=== PATIENT | female | born 1945 | race Caucasian/White ===

== ENCOUNTER 2017-04-09 11:42 | Emergency (ER) | payer OTHER ==
[~2017-04-09] VITALS: Ht 154.9 cm; Wt 78.0 kg
[~2017-04-09 11:42] MED LIST: VITA400C70; [UNRECOGNIZED DRUG - REMARK]
[2017-04-09 11:46] VITALS: BP 136/87; PULSE 114; RESP 12; TEMP 98.6; O2SAT 95
--- NOTE | 2017-04-09 11:52 | PD ---
Physical Exam Time Seen by Provider: 11:50 Narrative 71-year-old female presents to emergency room with complaint of left upper quadrant abdominal pain 6 days. MAXIMUM TEMPERATURE of 101.0. Reports vomiting. Denies diarrhea. Denies hematemesis. Denies chest pain or shortness of breath. Sent by her primary care provider. Patient seen in triage. Vital signs reviewed. Patient awaiting bed placement. Data Data Last Documented VS Vital Signs Date Time Temp Pulse Resp B/P (MAP) Pulse Ox O2 Delivery O2 Flow Rate FiO2 04/09/17 11:46 98.6 114 12 136/87 (103) 95 MDM Supervised Visit with JANN: Sofiya Garcia Apr 09, 2017 11:52
[2017-04-09 13:42] VITALS: BP 136/63; PULSE 92; RESP 18; O2SAT 97
[2017-04-09] MEDS ORDERED: HYDR-3801 PO (14:14)
[2017-04-09] MEDS ORDERED: SODIUM CHLORIDE 0.9% FLUSH 10 ML FLUSH IV FLUSH PRN (14:30)
--- NOTE | 2017-04-09 14:36 | PD ---
HPI Chief Complaint: Abdominal Pain Time Seen by Provider: 14:12 Travel History International Travel<30 days: No Contact w/Intl Traveler<30days: No Traveled to known affect area: No History of Present Illness HPI 71-year-old female presents to the emergency room for evaluation of midepigastric and left upper quadrant pain for the past 6 days. Patient states she has history of biliary colic which presents like this but pain has never lasted this long. States pain was most severe 3 days ago and has significantly improved but she was concerned at the persistence. She called her primary care physician who recommended she come to the emergency room for evaluation. She has never had any abdominal surgery except . She reports a few episodes of nausea with nonbloody, nonbilious vomiting a few days ago. She had diarrhea yesterday that was green in color. Patient denies fever, chills. No significant medical history except mild hypertension for which she takes hydralazine. She denies chest pain, shortness breath, or diaphoresis. She denies alcohol use. PFS Past Medical History Anxiety: Yes High Cholesterol: Yes ?: Not Past Surgical History Section: Yes Social History Alcohol Use: No Tobacco Use: No Substance Use: No Allergies-Medications (Allergen,Severity, Reaction): Coded Allergies: iodine (Unverified Allergy, Mild, Hives, 04/09/17) penicillin G (Unverified Allergy, Mild, Hives, 04/09/17) potassium iodide (Unverified Allergy, Mild, Hives, 04/09/17) povidone-iodine (Unverified Allergy, Mild, Hives, 04/09/17) sodium iodide (Unverified Allergy, Mild, Hives, 04/09/17) sodium iodide (Unverified Allergy, Mild, Hives, 04/09/17) iohexol (Unverified Allergy, Unknown, PT STATES INTERNAL ALLERGY TO IODINE , 04/09/17) Reported Meds & Prescriptions Reported Meds & Active Scripts Active Reported Hydralazine (Hydralazine HCl) 100 Mg Tab 50 Mg PO DAILY Take with meals Review of Systems Except as stated in HPI: all other systems reviewed are Neg Physical Exam Narrative GENERAL: Well-nourished, well-developed female in no acute distress. Afebrile. Ambulatory. SKIN: Focused skin assessment warm/dry. HEAD: Normocephalic. EYES: No scleral icterus. No injection or drainage. NECK: Supple, trachea midline. No JVD or lymphadenopathy. CARDIOVASCULAR: Regular rate and rhythm without murmurs, gallops, or rubs. RESPIRATORY: Breath sounds equal bilaterally. No accessory muscle use. GASTROINTESTINAL: Abdomen soft, nondistended. Mild tenderness to palpation of the left upper quadrant. No peritoneal signs. No rebound tenderness. Data Data Last Documented VS Vital Signs Date Time Temp Pulse Resp B/P (MAP) Pulse Ox O2 Delivery O2 Flow Rate FiO2 04/09/17 13:42 92 18 136/63 (87) 97 Room Air 04/09/17 11:46 98.6 Orders Orders Complete Blood Count With Diff (04/09/17 14:22) Comprehensive Metabolic Panel (04/09/17 14:22) Lipase (04/09/17 14:22) Prothrombin Time / Inr (Pt) (04/09/17 14:22) Act Partial Throm Time (Ptt) (04/09/17 14:22) Iv Access Insert/Monitor (04/09/17 14:22) Ecg Monitoring (04/09/17 14:22) Oximetry (04/09/17 14:22) Sodium Chloride 0.9% Flush (Ns Flush) (04/09/17 14:30) Electrocardiogram (04/09/17 14:22) Us Abdomen Gallbladder (04/09/17 14:32) Troponin I (04/09/17 14:36) Ckmb (Isoenzyme) Profile (04/09/17 14:36) Labs Laboratory Tests Test 04/09/17 15:50 White Blood Count 6.6 TH/MM3 Red Blood Count 5.14 MIL/MM3 Hemoglobin 14.7 GM/DL Hematocrit 44.1 % Mean Corpuscular Volume 85.8 FL Mean Corpuscular Hemoglobin 28.7 PG Mean Corpuscular Hemoglobin Concent 33.4 % Red Cell Distribution Width 14.2 % Platelet Count 308 TH/MM3 Mean Platelet Volume 7.7 FL Neutrophils (%) (Auto) 70.7 % Lymphocytes (%) (Auto) 14.0 % Monocytes (%) (Auto) 12.0 % Eosinophils (%) (Auto) 2.9 % Basophils (%) (Auto) 0.4 % Neutrophils # (Auto) 4.7 TH/MM3 Lymphocytes # (Auto) 0.9 TH/MM3 Monocytes # (Auto) 0.8 TH/MM3 Eosinophils # (Auto) 0.2 TH/MM3 Basophils # (Auto) 0.0 TH/MM3 CBC Comment DIFF FINAL Differential Comment Prothrombin Time 10.7 SEC Prothromb Time International Ratio 1.0 RATIO Activated Partial Thromboplast Time 28.3 SEC Blood Urea Nitrogen 13 MG/DL Creatinine 0.76 MG/DL Random Glucose 80 MG/DL Total Protein 7.9 GM/DL Albumin 3.4 GM/DL Calcium Level 9.4 MG/DL Alkaline Phosphatase 195 U/L Aspartate Amino Transf (AST/SGOT) 72 U/L Alanine Aminotransferase (ALT/SGPT) 242 U/L Total Bilirubin 0.9 MG/DL Sodium Level 137 MEQ/L Potassium Level 4.4 MEQ/L Chloride Level 105 MEQ/L Carbon Dioxide Level 22.9 MEQ/L Anion Gap 9 MEQ/L Estimat Glomerular Filtration Rate 75 ML/MIN Total Creatine Kinase 95 U/L Troponin I LESS THAN 0.02 NG/ML Lipase 419 U/L MDM Medical Decision Making Medical Screen Exam Complete: Yes Emergency Medical Condition: Yes Medical Record Reviewed: Yes Differential Diagnosis Abdominal pain, cholelithiasis, cholecystitis, GERD, pancreatitis Narrative Course 71-year-old female presents to the emergency room for evaluation of midepigastric and left upper quadrant abdominal pain with radiation to her back for the past 6 days. Patient states pain has been improving but she was concerned about the persistence. States she has had biliary colic in the past and this is how presented. Patient denies shortness of breath, diaphoresis, or history of heart disease. Abdomen is soft, mildly tender to palpation especially in the left upper quadrant. No peritoneal signs, guarding, or rebound tenderness. IV access established and basic labs obtained. EKG shows sinus rhythm with a rate of [address] changes. Troponin and CK-MB are unremarkable. CBC is unremarkable. Ultrasound of the gallbladder shows cholelithiasis without evidence of acute infection. CMP is still not resulted at 1745. CMP resulted at approximately 1800. It is significant for elevated liver enzymes and lipase of 419. History and physical exam are consistent with pancreatitis. She is able to tolerate fluids and has not vomited since Friday (3 days ago). Vital signs stable. Patient is stable for outpatient follow-up. She was put on a clear liquid diet and discharged with prescriptions for Zofran and Lortab. Told to follow up with her primary care physician for recheck this week or return for worsening symptoms. She understands and agrees to plan. Diagnosis Primary Impression: Pancreatitis Qualified Codes: K85.00 - Idiopathic acute pancreatitis without necrosis or infection Referrals: Primary Care Physician Additional Instructions: Rest and drink plenty of fluids. Take Lortab as directed, as needed for pain. Do not drink alcohol or drive while taking this medication. Zofran as directed, as needed for pain. Follow up with a primary care physician this week. Return to emergency room for worsening symptoms such as but not limited to inability to stay hydrated, persistent vomiting, uncontrollable pain, fevers, blood in vomit or stool, or altered mental status. Disposition: 01 DISCHARGE HOME Condition: Stable Chanell Khan Apr 09, 2017 14:36
--- NOTE | 2017-04-09 15:20 | RADRPT ---
EXAM DATE/TIME: 04/09/2017 14:35 [facility] COMPARISON: No previous studies available for comparison. INDICATIONS : Nausea and vomiting with abdominal pain. MEDICAL HISTORY : Hypercholesterolemia. Anxiety. SURGICAL HISTORY : section. ENCOUNTER: Initial ACUITY: 1 day PAIN SCORE: 3/10 LOCATION: Right upper quadrant MEASUREMENTS: LIVER: 16.8 cm length COMMON DUCT: 5 mm RIGHT KIDNEY: 8.1 x 5.2 x 5.2 cm FINDINGS: Ultrasound of the upper abdomen demonstrates increased echogenicity of the liver compatible with fatt y infiltration or hepatocellular disease. There is a single stone within the gallbladder without wall thickening or pericholecystic fluid measuring 5 mm. The right kidney is unremarkable. CONCLUSION: 1. Cholelithiasis Ernie Blancas MD on April 09, 2017 at 15:16 Board Certified Radiologist. This report was verified electronically.
[2017-04-09 16:14] LABS: AUTOMATED NEUTROPHIL # 4.7 TH/MM3 (1.8-7.7); BASOPHIL % 0.4 % (0.0-2.0); EOSINOPHIL # 0.2 TH/MM3 (0-0.4); EOSINOPHIL % 2.9 % (0.0-4.0); HEMATOCRIT 44.1 % (35.0-46.0); HEMO FLAGS DIFF FINAL; LYMPHOCYTE # 0.9 TH/MM3 (1.0-4.8); MEAN CELL VOLUME 85.8 FL (80.0-100.0); MEAN CORPUSCULAR HEMOGLOBIN 28.7 PG (27.0-34.0); MEAN CORPUSCULAR HGB CONC 33.4 % (32.0-36.0); NEUT % 70.7 % (16.0-70.0); PLATELET COUNT 308 TH/MM3 (150-450); RED BLOOD COUNT 5.14 MIL/MM3 (4.00-5.30); RED CELL DISTRIBUTION WIDTH 14.2 % (11.6-17.2); WHITE BLOOD COUNT 6.6 TH/MM3 (4.0-11.0)
[2017-04-09 16:21] LABS: PROTHROMBIN TIME - PATIENT 10.7 SEC (9.8-11.6)
[2017-04-09 16:33] LABS: APTT (PATIENT) 28.3 SEC (24.3-30.1)
[2017-04-09 16:51] LABS: CREATINE KINASE 95 U/L (26-192)
[2017-04-09 17:49] LABS: ALT (GPT) 242 U/L (10-53); ANION GAP 9 MEQ/L (5-15); AST (GOT) 72 U/L (15-37); BICARBONATE 22.9 MEQ/L (21.0-32.0); BLOOD UREA NITROGEN 13 MG/DL (7-18); CHLORIDE 105 MEQ/L (98-107); GLOMERULAR FILTRATION RATE 75 ML/MIN (>89); POTASSIUM 4.4 MEQ/L (3.5-5.1); SODIUM (NA) 137 MEQ/L (136-145)
[2017-04-09 17:50] LABS: ALKALINE PHOSPHATASE 195 U/L (45-117); TOTAL BILIRUBIN ADULT 0.9 MG/DL (0.2-1.0)
--- NOTE | 2017-04-09 18:21 | PD ---
Physical Exam Date Seen by Provider: Apr 09, 2017 Narrative Patient presents with left upper abdominal pain with nausea and vomiting. Nausea and vomiting has actually subsided but the pain has persisted. Her abdomen is soft with some tenderness in the epigastrium and left upper quadrant. No right upper quadrant tenderness. She has good color and does not appear acutely ill at this time. Data Data Last Documented VS Vital Signs Date Time Temp Pulse Resp B/P (MAP) Pulse Ox O2 Delivery O2 Flow Rate FiO2 04/09/17 13:42 92 18 136/63 (87) 97 Room Air 04/09/17 11:46 98.6 Orders Orders Complete Blood Count With Diff (04/09/17 14:22) Comprehensive Metabolic Panel (04/09/17 14:22) Lipase (04/09/17 14:22) Prothrombin Time / Inr (Pt) (04/09/17 14:22) Act Partial Throm Time (Ptt) (04/09/17 14:22) Iv Access Insert/Monitor (04/09/17 14:22) Ecg Monitoring (04/09/17 14:22) Oximetry (04/09/17 14:22) Sodium Chloride 0.9% Flush (Ns Flush) (04/09/17 14:30) Electrocardiogram (04/09/17 14:22) Us Abdomen Gallbladder (04/09/17 14:32) Troponin I (04/09/17 14:36) Ckmb (Isoenzyme) Profile (04/09/17 14:36) Labs Laboratory Tests Test 04/09/17 15:50 White Blood Count 6.6 TH/MM3 Red Blood Count 5.14 MIL/MM3 Hemoglobin 14.7 GM/DL Hematocrit 44.1 % Mean Corpuscular Volume 85.8 FL Mean Corpuscular Hemoglobin 28.7 PG Mean Corpuscular Hemoglobin Concent 33.4 % Red Cell Distribution Width 14.2 % Platelet Count 308 TH/MM3 Mean Platelet Volume 7.7 FL Neutrophils (%) (Auto) 70.7 % Lymphocytes (%) (Auto) 14.0 % Monocytes (%) (Auto) 12.0 % Eosinophils (%) (Auto) 2.9 % Basophils (%) (Auto) 0.4 % Neutrophils # (Auto) 4.7 TH/MM3 Lymphocytes # (Auto) 0.9 TH/MM3 Monocytes # (Auto) 0.8 TH/MM3 Eosinophils # (Auto) 0.2 TH/MM3 Basophils # (Auto) 0.0 TH/MM3 CBC Comment DIFF FINAL Differential Comment Prothrombin Time 10.7 SEC Prothromb Time International Ratio 1.0 RATIO Activated Partial Thromboplast Time 28.3 SEC Blood Urea Nitrogen 13 MG/DL Creatinine 0.76 MG/DL Random Glucose 80 MG/DL Total Protein 7.9 GM/DL Albumin 3.4 GM/DL Calcium Level 9.4 MG/DL Alkaline Phosphatase 195 U/L Aspartate Amino Transf (AST/SGOT) 72 U/L Alanine Aminotransferase (ALT/SGPT) 242 U/L Total Bilirubin 0.9 MG/DL Sodium Level 137 MEQ/L Potassium Level 4.4 MEQ/L Chloride Level 105 MEQ/L Carbon Dioxide Level 22.9 MEQ/L Anion Gap 9 MEQ/L Estimat Glomerular Filtration Rate 75 ML/MIN Total Creatine Kinase 95 U/L Troponin I LESS THAN 0.02 NG/ML Lipase 419 U/L MDM Supervised Visit with JANN: Yes Narrative Course I, Dr. Cleveland, have reviewed the advance practice practitioner's documentation and am in agreement, met with the patient face to face, made the diagnosis, and the medical decision making was done by me. *My assessment and Findings: Patient has evidence of pancreatitis. However, she is tolerating oral liquids. Therefore, she will be discharged home with pain medication and clear fluids and close follow-up with her primary care provider. Please see Chanell Khan PA-C's note for results of laboratory and radiographic evaluation, ED course, final diagnosis and disposition Referrals: Primary Care Physician Additional Instruction: Rest and drink plenty of fluids. Take Lortab as directed, as needed for pain. Do not drink alcohol or drive while taking this medication.. Follow up with a primary care physician. Return to emergency room for worsening symptoms, as discussed. Disposition: 01 DISCHARGE HOME Condition: Stable Yee Cleveland MD Apr 09, 2017 18:21
[2017-04-09] MEDS ORDERED: ZOFR4TAB3 SL (18:28)
[2017-04-09] MEDS ORDERED: HYDR-3533 PO (18:28)
--- NOTE | 2017-04-10 12:22 | EKG ---
Date Performed: 04/09/2017 Time Performed: 15:36:12 PTAGE: 71 years EKG: Sinus rhythm NORMAL ECG PREVIOUS TRACING : 03/26/2007 17.12 Compared to prior tracing no significant change DOCTOR: Robina Casper Interpretating Date/Time 04/10/2017 12:18:08
== END 2017-04-09 19:14 | disposition home or self-care (01) ==
LOC: NEPD 11:42
DX: K85.00 Idiopathic acute pancreatitis without necrosis or infection (principal); K80.20 Calculus of gallbladder without cholecystitis without obstruction; I10 Essential (primary) hypertension
CPT/HCPCS: 76705; 80053; 82550; 83690; 84484; 85025; 85610; 85730; 93005

== ENCOUNTER → 2017-10-10 | Day surgery (SDC) | payer OTHER ==
[~2017-10-10] MED LIST changes: +ACETAMINOPHEN 1000 MG/100 ML 100 ML IV ONE; +ACETAMINOPHEN/HYDROcodone 325 MG/5 MG TAB ONE; +BUPIVACAINE/EPINEPHRINE 0.25% 50 ML VIAL ONE; +HYDR-3533 PO; +HYDR-3801 PO; +KETOROLAC TROMETHAMINE 30 MG/ML (IVP) VIAL IV PUSH ONE; +LACTATED RINGER'S 1000 ML INJ 1,000 ML ONE; +MEPERIDINE HCL 25 MG/ML VIAL ONE; +MIDAZOLAM HCL 2 MG/2 ML VIAL ONE; +ONDANSETRON HCL 4 MG/2 ML VIAL IV PUSH ONE; +PROPOFOL 200 MG/20 ML AMP IV ONE; +VANCOMYCIN HCL 1000 MG VIAL ONE; -VITA400C70; +ZOFR4TAB3 SL; -[UNRECOGNIZED DRUG - REMARK]
--- NOTE | 2017-10-10 09:45 | MP ---
cc: Vignesh Ferro MD, Ketul R MD DATE OF OPERATION: 10/10/2017 Cc: Yu Cook MD PREOPERATIVE DIAGNOSIS: Symptomatic cholelithiasis with biliary colic. POSTOPERATIVE DIAGNOSIS: Cholecystitis. ANESTHESIA: General endotracheal. SURGEON: MD Pillo [employer]: Radha Weiner MS-3. ESTIMATED BLOOD LOSS: Less than 10 mL FLUIDS: 500 mL crystalloid. COMPLICATIONS: None. DRAINS: None. SPECIMENS: Gallbladder and contents to pathology. PROCEDURE IN DETAIL: The patient was taken to the operating room, and placed on the operating table in the supine position. After an adequate level of general endotracheal anesthesia was achieved, the abdomen was prepped and draped in the usual fashion. Timeout was taken confirming the correct patient, site, and procedure to be performed. Skin and subcutaneous tissue was infiltrated with a local anesthetic and an incision made in the umbilicus. Incision was carried through the fascia. Preperitoneal fat in the umbilicus was reduced into the abdominal cavity. A 12 mm balloon trocar was inserted and the balloon inflated. The abdomen was insufflated. The patient was placed in reverse Trendelenburg position. Three 5 mm trocars were then placed with the first to the right of the falciform ligament and second and third in the right subcostal region. All entered the abdominal cavity under direct vision uneventfully. The fundus of the gallbladder was then grasped and retracted up and over the dome of the liver. The cystic duct infundibular junction and cystic artery were both circumferentially dissected. The cystic artery was doubly clipped proximally, singly clipped on the gallbladder side and divided. As the patient had normal liver function tests, normal caliber common bile duct, and normal anatomy, cholangiogram was not obtained. The cystic duct was then doubly clipped distally, singly clipped on the gallbladder side and divided. The gallbladder was dissected off the liver bed with electrodissection. The gallbladder, which was intact, was placed into an EndoCatch device and removed via the umbilical port and passed off the table. The upper abdomen was revisualized. The cystic artery stump and cystic duct stump were both seen to be clean and dry. One small oozing point on the liver bed was controlled with electrocautery. With hemostasis assured, insufflation was then discontinued. The upper abdominal trocars were removed under direct vision. No bleeding was noted from the trocar sites during desufflation. The laparoscope and umbilical port were then removed. The fascia was closed in the umbilicus with interrupted 0 Vicryl suture as well as [id number] 0 Vicryl suture. The remaining local anesthetic was injected into each of the trocar sites with the bulk of the local injected into the umbilical site. The skin was closed at each of the trocar sites with interrupted buried 4-0 Vicryl suture. The wounds were dressed with Steri-Strips. The patient was extubated and taken back to the recovery room in stable condition. She tolerated the procedure well. MD TIERRA Mata/CATHRYN , 09:16 AM , 09:44 AM
== END | disposition home or self-care (01) ==
LOC: ESDC 06:00
PROVIDERS: ATTEND Surgery Trauma Surgery
DX: K80.10 Calculus of gallbladder with chronic cholecystitis without obstruction (principal)
CPT/HCPCS: 00790; 47562; 88304; J0131; J1885; J2175; J2250; J2405; J3010; J3370; J7120